=== PATIENT | male | born 1960 | race Caucasian/White ===

== ENCOUNTER → 2019-03-28 | Outpatient (CLI) | payer OTHER ==
--- NOTE | 2019-03-28 12:24 | Diagnostic Imaging Report ---
EXAM: Renal Ultrasound INDICATION: Renal cyst COMPARISON: None TECHNIQUE: Transverse and longitudinal images of the kidneys and bladder were obtained. FINDINGS: Right Kidney: Length: 12.2 cm Appearance: Normal echogenicity. Collecting system: No hydronephrosis Stones: None Cyst/Mass: 6.2 x 7.2 x 6.8 simple cyst at the inferior lateral right kidney. Left Kidney: Length: 12.0 cm Appearance: Normal echogenicity. Collecting system: No hydronephrosis Stones: None Cyst/Mass: None Bladder: Normal Prostate: The prostate measures 3.3 x 1.3 x 2.8 cm with estimated volume of 6.1 cc. IMPRESSION: Simple cyst at the inferior lateral right kidney. Signed by: Brissa Velarde MD on 03/28/2019 12:21 PM
== END ==
LOC: US 10:59
PROVIDERS: ATTEND Urology
DX: N28.1 Cyst of kidney, acquired (principal)
CPT/HCPCS: 76770